=== PATIENT | male | born 1950 | race Caucasian/White ===

== ENCOUNTER → 2017-01-07 | Outpatient (CLI) | payer OTHER ==
[~2017-01-07] MED LIST: ALPR-475 PO; ASPI650T PO; ATOR20TA PO; FLUO20CA19 PO; HYDR25TA6 PO; METO50TA82 PO
== END | disposition home or self-care (01) ==
LOC: CVU 06:40
PROVIDERS: ATTEND Internal Medicine
DX: I73.9 Peripheral vascular disease, unspecified (principal); I77.811 Abdominal aortic ectasia
CPT/HCPCS: 93922; 93925; 93978